=== PATIENT | female | born 1995 | race African-American/Black ===

== ENCOUNTER 2017-04-27 20:49 | Emergency (ER) | payer OTHER ==
[2017-04-27 20:50] VITALS: BP 124/82; PULSE 78; RESP 16; TEMP 99.3; O2SAT 98
== END 2017-04-27 21:20 | disposition left against medical advice (07) ==
LOC: NED 20:49
DX: Z04.1 Encounter for examination and observation following transport accident (principal)
CPT/HCPCS: 99281